=== PATIENT | male | born 1935 | race Caucasian/White ===

== ENCOUNTER 2018-09-28 21:34 | Inpatient (IN) ==
[2018-09-28 22:33] LABS: Basophils # 0.1 10*3/uL (0.0-0.2); Basophils % 0.7 % (0.0-0.8); Eosinophils # 0.1 10*3/uL (0.0-0.87); Eosinophils % 1.5 % (0.00-10.9); Hemoglobin 11.4 GM/DL (14.0-18.0); Immature Granulocytes % 0.2 %; Immature Granulocytes Absolute 0.02 #; Lymphocytes # 1.5 10*3/uL (1.4-4.0); Lymphocytes % 16.2 % (21.2-54.2); Mean Corpuscular HGB Conc 31.7 GM/DL (32-36); Mean Corpuscular Hemoglobin 27 PG (27-34); Mean Corpuscular Volume 83.7 FL (87-102); Mean Platelet Volume 9.5 FL (9.6-12.0); Monocytes # 0.8 10*3/uL (0.11-0.8); Monocytes % 8.4 % (1.7-12.7); Neutrophils # 6.7 10*3/uL (1.4-7.4); Platelet Count 341 T/CUMM (130-400); Red Cell Distribution Width 15.9 % (9.3-17.3); White Blood Count 9.2 T/CUMM (4-12)
[2018-09-28 22:43] LABS: Alanine Aminotransferase 20 U/L (16-61); Albumin 3.2 G/DL (3.4-5.0); Alkaline Phosphatase 84 U/L (45-117); Aspartate Amino Transferase 14 U/L (0-37); Bilirubin,Total < 0.39 MG/DL (0.2-1.0); Blood Urea Nitrogen 12 MG/DL (7-18); Calcium 8.6 MG/DL (8.5-10.1); Glucose 134 MG/DL (74-106); Osmolality,Calculated 276.7 MOS/KG (273-304); Potassium 3.6 MMOL/L (3.5-5.1); Sodium 138 MMOL/L (136-145); Total Protein 7.3 G/DL (6.4-8.3)
[2018-09-28] MEDS ORDERED: HEPARIN 5,000 UNIT/1 ML VIAL IV ONE (22:57)
[2018-09-28] MEDS ORDERED: HEPARIN DRIP 25,000 UNITS/500 ML PREMIX IV SCH (23:00)
[2018-09-28] MEDS ORDERED: NITROGLYCERIN 2% OINT 1 INCH/GM PACK TOP STA (23:05)
[2018-09-28 23:18] LABS: Partial Thromboplastin Time 28.7 SECS (0-40)
[2018-09-28] MEDS ORDERED: LORazepam 1 MG TABLET PO STA (23:29)
[2018-09-28] MEDS ORDERED: MAGNESIUM SULF RIDER 2 GM in PREMIX 1 EACH IV PRN (23:49)
[2018-09-28] MEDS ORDERED: diphenhydrAMINE CAP 25 MG CAPSULE PO PRN (23:49)
[2018-09-28] MEDS ORDERED: MORPHINE 4 MG/1 ML VIAL IV PRN (23:49)
[2018-09-28] MEDS ORDERED: ACETAMINOPHEN 325 MG TABLET PO PRN (23:49)
[2018-09-28] MEDS ORDERED: guaiFENesin/DM ER 600-30 MG TABLET PO PRN (23:49)
[2018-09-28] MEDS ORDERED: ZALEPLON 5 MG CAPSULE PO PRN (23:49)
[2018-09-28] MEDS ORDERED: BISACODYL 5 MG TABLET PO PRN (23:49)
[2018-09-28] MEDS ORDERED: MAGNESIUM SULF RIDER 4 GM in PREMIX 1 EACH IV PRN (23:49)
[2018-09-28] MEDS ORDERED: ONDANSETRON 4 MG/2 ML VIAL IV PRN (23:49)
[2018-09-28] MEDS ORDERED: NICOTINE 21 MG/24 HR PATCH TRANSDERM PRN (23:49)
[2018-09-29 00:49] LABS: Risk Ratio 4.45; Thyroid Stimulating Hormone 0.826 uIU/ml (0.358-3.74)
[2018-09-29 05:40] LABS: Basophils # 0.1 10*3/uL (0.0-0.2); Basophils % 0.6 % (0.0-0.8); Eosinophils # 0.1 10*3/uL (0.0-0.87); Eosinophils % 1.5 % (0.00-10.9); Hematocrit 34.6 VOL% (42.0-52.0); Hemoglobin 11.3 GM/DL (14.0-18.0); Immature Granulocytes % 0.2 %; Immature Granulocytes Absolute 0.02 #; Lymphocytes # 3.1 10*3/uL (1.4-4.0); Lymphocytes % 32.1 % (21.2-54.2); Mean Corpuscular HGB Conc 32.7 GM/DL (32-36); Mean Corpuscular Hemoglobin 27 PG (27-34); Mean Corpuscular Volume 81.8 FL (87-102); Neutrophils # 5.4 10*3/uL (1.4-7.4); Neutrophils % 55.6 % (38.7-73.9); Platelet Count 357 T/CUMM (130-400); Red Blood Count 4.23 MC/CUMM (3.8-5.5); Red Cell Distribution Width 15.8 % (9.3-17.3); White Blood Count 9.6 T/CUMM (4-12)
[2018-09-29 08:24] LABS: CKMB % 10.1 %
[2018-09-29 08:26] LABS: Troponin I 35.2 NG/ML (0.00-0.045)
[2018-09-29] MEDS: ASPIRIN EC 81 MG TABLET PO SCH (08:52)
[2018-09-29] MEDS: LORazepam 1 MG TABLET PO SCH ×3 (08:53→20:58)
[2018-09-29] MEDS: PANTOPRAZOLE 40 MG TABLET PO SCH (08:53)
[2018-09-29] MEDS: HEPARIN DRIP 25,000 UNITS/500 ML PREMIX IV SCH (08:54)
[2018-09-29] MEDS ORDERED: DILTIAZEM CD 120 MG CAPSULE PO SCH (09:00)
[2018-09-29] MEDS ORDERED: MAGNESIUM SULF RIDER 2 GM in PREMIX 1 EACH IV PRN (09:09)
[2018-09-29] MEDS ORDERED: POTASSIUM CHLORIDE RIDER 10 MEQ in PREMIX 1 EACH IV PRN (09:09)
[2018-09-29] MEDS: METOPROLOL TARTRATE 25 MG TABLET PO SCH ×2 (09:59→20:58)
[2018-09-29 12:14] LABS: CKMB % 8.9 %
[2018-09-29 12:16] LABS: Troponin I 23.4 NG/ML (0.00-0.045)
[2018-09-29] MEDS: ISOSORBIDE MONONITRATE 30 MG TABLET PO SCH (14:37)
[2018-09-29] MEDS: ATORVASTATIN 80 MG TABLET PO SCH (20:58)
[2018-09-29] MEDS: POTASSIUM CHLORIDE 20 MEQ TABLET PO PRN (20:58)
[2018-09-30] MEDS ORDERED: DIAZEPAM 5 MG TABLET PO ONE ×2 (00:01→07:30)
[2018-09-30] MEDS ORDERED: diphenhydrAMINE CAP 25 MG CAPSULE PO ONE ×2 (00:01→07:30)
[2018-09-30] MEDS: HEPARIN DRIP 25,000 UNITS/500 ML PREMIX IV SCH ×2 (03:16→12:15)
[2018-09-30 05:36] LABS: Basophils # 0.1 10*3/uL (0.0-0.2); Basophils % 0.9 % (0.0-0.8); Eosinophils # 0.3 10*3/uL (0.0-0.87); Eosinophils % 4.3 % (0.00-10.9); Hematocrit 35.3 VOL% (42.0-52.0); Hemoglobin 11.4 GM/DL (14.0-18.0); Immature Granulocytes % 0.3 %; Immature Granulocytes Absolute 0.02 #; Lymphocytes # 2.8 10*3/uL (1.4-4.0); Lymphocytes % 35.7 % (21.2-54.2); Mean Corpuscular HGB Conc 32.3 GM/DL (32-36); Mean Corpuscular Hemoglobin 27 PG (27-34); Mean Corpuscular Volume 82.5 FL (87-102); Mean Platelet Volume 10.6 FL (9.6-12.0); Monocytes # 0.8 10*3/uL (0.11-0.8); Monocytes % 10.2 % (1.7-12.7); Neutrophils # 3.9 10*3/uL (1.4-7.4); Neutrophils % 48.6 % (38.7-73.9); Platelet Count 364 T/CUMM (130-400); Red Blood Count 4.28 MC/CUMM (3.8-5.5)
[2018-09-30 05:40] LABS: Calcium 8.7 MG/DL (8.5-10.1); Osmolality,Calculated 276.5 MOS/KG (273-304); Potassium 3.7 MMOL/L (3.5-5.1)
[2018-09-30 05:45] LABS: Calcium 8.9 MG/DL (8.5-10.1); Osmolality,Calculated 281.3 MOS/KG (273-304); Potassium 3.7 MMOL/L (3.5-5.1)
[2018-09-30] MEDS ORDERED: HEPARIN/NACL 0.9% 2 UNITS/ML 1,000 ML IV ONE (06:56)
[2018-09-30] MEDS ORDERED: SODIUM CHLORIDE 0.9% 1,000 ML IV SCH (07:30)
[2018-09-30] MEDS: PANTOPRAZOLE 40 MG TABLET PO SCH ×2 (07:49→08:06)
[2018-09-30] MEDS: METOPROLOL TARTRATE 25 MG TABLET PO SCH ×3 (07:49→20:32)
[2018-09-30] MEDS: ASPIRIN EC 81 MG TABLET PO SCH ×2 (07:50→08:05)
[2018-09-30] MEDS: ISOSORBIDE MONONITRATE 30 MG TABLET PO SCH ×2 (07:51→08:06)
[2018-09-30] MEDS: LORazepam 1 MG TABLET PO SCH ×3 (08:06→20:32)
[2018-09-30] MEDS ORDERED: LIDOCAINE 1%/EPI INJ 20 ML VIAL ONE (08:19)
[2018-09-30] MEDS ORDERED: MIDAZOLAM 2 MG/2 ML VIAL ONE (08:19)
[2018-09-30] MEDS ORDERED: fentaNYL 100 MCG/2 ML VIAL ONE (08:19)
[2018-09-30] MEDS ORDERED: HEPARIN/NACL 0.9% 2 UNITS/ML 500 ML IV ONE (08:34)
[2018-09-30] MEDS ORDERED: NIFEdipine 10 MG CAPSULE PO ONE (08:49)
[2018-09-30] MEDS ORDERED: NITROGLYCERIN SL 0.4 MG TABLET SL PRN (09:46)
[2018-09-30] MEDS: TICAGRELOR 90 MG TABLET PO SCH ×2 (10:36→20:32)
[2018-09-30] MEDS: ATORVASTATIN 80 MG TABLET PO SCH (20:32)
[2018-09-30] MEDS ORDERED: ATORVASTATIN 40 MG TABLET PO SCH (21:00)
[2018-09-30] MEDS ORDERED: TICAGRELOR 90 MG TABLET PO SCH (21:00)
[2018-10-01 04:48] LABS: Basophils # 0.1 10*3/uL (0.0-0.2); Basophils % 0.5 % (0.0-0.8); Eosinophils # 0.3 10*3/uL (0.0-0.87); Eosinophils % 3.5 % (0.00-10.9); Hematocrit 36.6 VOL% (42.0-52.0); Hemoglobin 11.7 GM/DL (14.0-18.0); Immature Granulocytes % 0.3 %; Immature Granulocytes Absolute 0.03 #; Lymphocytes # 2.4 10*3/uL (1.4-4.0); Lymphocytes % 25.2 % (21.2-54.2); Mean Corpuscular Hemoglobin 27 PG (27-34); Mean Corpuscular Volume 82.8 FL (87-102); Mean Platelet Volume 9.8 FL (9.6-12.0); Monocytes # 1.1 10*3/uL (0.11-0.8); Monocytes % 11.3 % (1.7-12.7); Neutrophils # 5.5 10*3/uL (1.4-7.4); Neutrophils % 59.2 % (38.7-73.9); Platelet Count 339 T/CUMM (130-400); Red Blood Count 4.42 MC/CUMM (3.8-5.5); Red Cell Distribution Width 15.9 % (9.3-17.3); White Blood Count 9.4 T/CUMM (4-12)
[2018-10-01 04:55] LABS: Calcium 8.3 MG/DL (8.5-10.1); Osmolality,Calculated 279.4 MOS/KG (273-304); Potassium 3.6 MMOL/L (3.5-5.1)
[2018-10-01] MEDS ORDERED: POTASSIUM CHLORIDE RIDER 10 MEQ in PREMIX 1 EACH IV PRN (08:49)
[2018-10-01] MEDS ORDERED: MAGNESIUM SULF RIDER 2 GM in PREMIX 1 EACH IV PRN (08:49)
[2018-10-01] MEDS: ASPIRIN EC 81 MG TABLET PO SCH (09:59)
[2018-10-01] MEDS: amLODIPine 5 MG TABLET PO SCH (09:59)
[2018-10-01] MEDS: POTASSIUM CHLORIDE 20 MEQ TABLET PO PRN ×2 (09:59→13:24)
[2018-10-01] MEDS: METOPROLOL TARTRATE 25 MG TABLET PO SCH ×2 (09:59→21:26)
[2018-10-01] MEDS: ISOSORBIDE MONONITRATE 30 MG TABLET PO SCH (09:59)
[2018-10-01] MEDS: TICAGRELOR 90 MG TABLET PO SCH ×2 (09:59→21:26)
[2018-10-01] MEDS: PANTOPRAZOLE 40 MG TABLET PO SCH (10:00)
[2018-10-01] MEDS: LORazepam 1 MG TABLET PO SCH ×3 (10:03→21:26)
[2018-10-01] MEDS: SODIUM CHLORIDE 0.45% 1,000 ML IV SCH (12:39)
[2018-10-01] MEDS: HEPARIN DRIP 25,000 UNITS/500 ML PREMIX IV SCH (13:01)
[2018-10-01] MEDS: ATORVASTATIN 80 MG TABLET PO SCH (21:26)
[2018-10-02 05:25] LABS: Basophils # 0.1 10*3/uL (0.0-0.2); Basophils % 0.7 % (0.0-0.8); Eosinophils # 0.4 10*3/uL (0.0-0.87); Eosinophils % 4.6 % (0.00-10.9); Hemoglobin 11.8 GM/DL (14.0-18.0); Immature Granulocytes % 0.3 %; Immature Granulocytes Absolute 0.03 #; Lymphocytes # 2.2 10*3/uL (1.4-4.0); Lymphocytes % 24.5 % (21.2-54.2); Mean Corpuscular HGB Conc 32.8 GM/DL (32-36); Mean Corpuscular Hemoglobin 27 PG (27-34); Mean Platelet Volume 10.4 FL (9.6-12.0); Monocytes # 1.1 10*3/uL (0.11-0.8); Monocytes % 12.5 % (1.7-12.7); Neutrophils # 5.3 10*3/uL (1.4-7.4); Neutrophils % 57.4 % (38.7-73.9); Platelet Count 363 T/CUMM (130-400); Red Blood Count 4.39 MC/CUMM (3.8-5.5); Red Cell Distribution Width 15.9 % (9.3-17.3); White Blood Count 9.2 T/CUMM (4-12)
[2018-10-02 05:47] LABS: Calcium 9.1 MG/DL (8.5-10.1); Osmolality,Calculated 274.7 MOS/KG (273-304); Potassium 3.8 MMOL/L (3.5-5.1)
[2018-10-02] MEDS ORDERED: diphenhydrAMINE CAP 25 MG CAPSULE PO ONE (06:30)
[2018-10-02] MEDS ORDERED: DIAZEPAM 5 MG TABLET PO ONE (06:30)
[2018-10-02] MEDS ORDERED: diphenhydrAMINE CAP 50 MG CAPSULE ONE (06:35)
[2018-10-02] MEDS ORDERED: DIAZEPAM 5 MG TABLET ONE (06:36)
[2018-10-02] MEDS ORDERED: HEPARIN/NACL 0.9% 2 UNITS/ML 1,000 ML IV ONE (06:45)
[2018-10-02] MEDS ORDERED: LIDOCAINE 1%/EPI INJ 20 ML VIAL ONE (06:45)
[2018-10-02] MEDS ORDERED: fentaNYL 100 MCG/2 ML VIAL ONE (07:21)
[2018-10-02] MEDS ORDERED: MIDAZOLAM 2 MG/2 ML VIAL ONE (07:21)
[2018-10-02] MEDS ORDERED: NITROGLYCERIN DRIP 50 MG/250 ML BOTTLE IV ONE (07:41)
[2018-10-02] MEDS ORDERED: hydrALAZINE 20 MG/1 ML VIAL ONE (07:41)
[2018-10-02] MEDS ORDERED: HEPARIN 5,000 UNIT/1 ML VIAL ONE (07:44)
[2018-10-02] MEDS ORDERED: HYDROmorphone 2 MG/1 ML VIAL ONE (08:37)
[2018-10-02] MEDS ORDERED: TICAGRELOR 90 MG TABLET ONE (09:11)
[2018-10-02] MEDS: ISOSORBIDE MONONITRATE 30 MG TABLET PO SCH (10:51)
[2018-10-02] MEDS: amLODIPine 5 MG TABLET PO SCH (10:52)
[2018-10-02] MEDS: METOPROLOL TARTRATE 25 MG TABLET PO SCH ×2 (10:52→21:56)
[2018-10-02] MEDS: PANTOPRAZOLE 40 MG TABLET PO SCH (10:52)
[2018-10-02] MEDS: ASPIRIN EC 81 MG TABLET PO SCH (10:52)
[2018-10-02] MEDS: SODIUM CHLORIDE 0.45% 1,000 ML IV SCH ×2 (13:05→16:25)
[2018-10-02] MEDS: LORazepam 1 MG TABLET PO SCH ×3 (13:06→21:56)
[2018-10-02] MEDS: TICAGRELOR 90 MG TABLET PO SCH ×2 (13:06→21:56)
[2018-10-02] MEDS: HEPARIN DRIP 25,000 UNITS/500 ML PREMIX IV SCH (14:33)
[2018-10-02] MEDS: ATORVASTATIN 80 MG TABLET PO SCH (21:56)
[2018-10-03] MEDS: SODIUM CHLORIDE 0.45% 1,000 ML IV SCH (03:28)
[2018-10-03 07:32] LABS: Basophils # 0.1 10*3/uL (0.0-0.2); Basophils % 0.5 % (0.0-0.8); Eosinophils # 0.4 10*3/uL (0.0-0.87); Eosinophils % 3.6 % (0.00-10.9); Hematocrit 35.5 VOL% (42.0-52.0); Hemoglobin 11.5 GM/DL (14.0-18.0); Immature Granulocytes % 0.2 %; Immature Granulocytes Absolute 0.02 #; Lymphocytes % 20.6 % (21.2-54.2); Mean Corpuscular HGB Conc 32.4 GM/DL (32-36); Mean Corpuscular Hemoglobin 27 PG (27-34); Mean Corpuscular Volume 82.6 FL (87-102); Mean Platelet Volume 9.9 FL (9.6-12.0); Monocytes # 1.2 10*3/uL (0.11-0.8); Monocytes % 12.4 % (1.7-12.7); Neutrophils % 62.7 % (38.7-73.9); Platelet Count 348 T/CUMM (130-400); Red Cell Distribution Width 15.8 % (9.3-17.3); White Blood Count 9.6 T/CUMM (4-12)
[2018-10-03 07:54] LABS: Osmolality,Calculated 274.8 MOS/KG (273-304)
[2018-10-03] MEDS: ISOSORBIDE MONONITRATE 30 MG TABLET PO SCH (10:25)
[2018-10-03] MEDS: LORazepam 1 MG TABLET PO SCH (10:25)
[2018-10-03] MEDS: ASPIRIN EC 81 MG TABLET PO SCH (10:25)
[2018-10-03] MEDS: TICAGRELOR 90 MG TABLET PO SCH (10:25)
[2018-10-03] MEDS: amLODIPine 5 MG TABLET PO SCH (10:26)
[2018-10-03] MEDS: METOPROLOL TARTRATE 25 MG TABLET PO SCH (10:26)
[2018-10-03] MEDS: PANTOPRAZOLE 40 MG TABLET PO SCH (10:27)
[2018-10-03 11:58] VITALS: BP 105/72
== END 2018-10-03 13:05 | disposition home or self-care (01) | DRG 246 ==
LOC: EDBD → EDUNIT# → N.ED 21:34 → SUATTDRO 09-29 03:25 → N.EDINP 09-29 03:25 → N.5E 09-29 03:25 → N.TELES 09-29 09:45
PROVIDERS: ADMIT Internal Medicine; ATTEND Hospitalist
PROC: CLCCHCL (ICD-10-PCS; 2018-09-30 08:45)

== ENCOUNTER 2020-03-15 12:22 | Inpatient (IN) ==
[2020-03-15 13:12] LABS: Basophils # 0.1 10*3/uL (0.0-0.2); Basophils % 0.5 % (0.0-0.8); Eosinophils % 0.1 % (0.00-10.9); Hematocrit 31.5 VOL% (42.0-52.0); Hemoglobin 10.1 GM/DL (14.0-18.0); Immature Granulocytes % 0.4 %; Immature Granulocytes Absolute 0.05 #; Lymphocytes # 1.4 10*3/uL (1.4-4.0); Lymphocytes % 11.9 % (21.2-54.2); Mean Corpuscular HGB Conc 32.1 GM/DL (32-36); Monocytes % 7.3 % (1.7-12.7); Neutrophils % 79.8 % (38.7-73.9); Platelet Count 364 T/CUMM (130-400); Red Blood Count 3.75 MC/CUMM (3.8-5.5); Red Cell Distribution Width 14.6 % (9.3-17.3); White Blood Count 11.4 T/CUMM (4-12)
[2020-03-15 13:26] LABS: Calcium 9.7 MG/DL (8.5-10.1); Osmolality,Calculated 287.4 MOS/KG (273-304)
[2020-03-15 13:29] LABS: INR 1.2; PT Patient Result 12.3 SECS (9.8-11.9); Partial Thromboplastin Time 27.6 SECS (23.9-33.8)
[2020-03-15] MEDS ORDERED: SODIUM CHLORIDE 0.9% 1,000 ML IV STA (13:39)
[2020-03-15 14:11] LABS: Albumin 3.5 G/DL (3.4-5.0); Bilirubin,Total 0.6 MG/DL (0.2-1.0); Calcium 9.2 MG/DL (8.5-10.1); Osmolality,Calculated 287.5 MOS/KG (273-304); Total Protein 7.9 G/DL (6.4-8.3)
[2020-03-15] MEDS ORDERED: ONDANSETRON 4 MG/2 ML VIAL IV PRN (14:50)
[2020-03-15] MEDS ORDERED: GLUCAGON 1 MG VIAL IM PRN (14:50)
[2020-03-15] MEDS ORDERED: DEXTROSE 50% 25 GM/50 ML VIAL IV PRN (14:50)
[2020-03-15] MEDS: DEXTROSE 5% NACL 0.45% 1,000 ML IV SCH (16:10)
[2020-03-15] MEDS: METOPROLOL TARTRATE 5 MG/5 ML VIAL IV SCH ×2 (16:10→21:11)
[2020-03-15] MEDS: PANTOPRAZOLE 40 MG VIAL IV SCH (16:12)
[2020-03-15] MEDS: LORazepam 2 MG/1 ML VIAL IV PRN (16:15)
[2020-03-16] MEDS: LORazepam 2 MG/1 ML VIAL IV PRN (00:32)
[2020-03-16] MEDS: DEXTROSE 5% NACL 0.45% 1,000 ML IV SCH ×2 (03:52→15:04)
[2020-03-16] MEDS: METOPROLOL TARTRATE 5 MG/5 ML VIAL IV SCH ×4 (03:53→20:50)
[2020-03-16 05:55] LABS: Basophils # 0.1 10*3/uL (0.0-0.2); Basophils % 0.7 % (0.0-0.8); Eosinophils # 0.1 10*3/uL (0.0-0.87); Eosinophils % 0.8 % (0.00-10.9); Hematocrit 32.1 VOL% (42.0-52.0); Hemoglobin 10.4 GM/DL (14.0-18.0); Immature Granulocytes % 0.4 %; Immature Granulocytes Absolute 0.04 #; Lymphocytes # 1.4 10*3/uL (1.4-4.0); Lymphocytes % 13.6 % (21.2-54.2); Mean Corpuscular HGB Conc 32.4 GM/DL (32-36); Mean Corpuscular Volume 82.9 FL (87-102); Mean Platelet Volume 10.3 FL (9.6-12.0); Neutrophils % 73.5 % (38.7-73.9); Platelet Count 360 T/CUMM (130-400); Red Blood Count 3.87 MC/CUMM (3.8-5.5); Red Cell Distribution Width 14.7 % (9.3-17.3); White Blood Count 10.6 T/CUMM (4-12)
[2020-03-16] MEDS ORDERED: cefOXitin 2,000 MG in SYRINGE 1 EACH IV ONE (06:00)
[2020-03-16 06:37] LABS: Calcium 9.2 MG/DL (8.5-10.1); Osmolality,Calculated 285.5 MOS/KG (273-304)
[2020-03-16] MEDS ORDERED: BUPIVACAINE MPF 0.25% 30 ML VIAL ONE (08:05)
[2020-03-16] MEDS ORDERED: LIDOCAINE 1%/EPI INJ 20 ML VIAL ONE (08:05)
[2020-03-16] MEDS: LACTATED RINGERS 1,000 ML IV SCH ×3 (08:10→16:31)
[2020-03-16] MEDS: PANTOPRAZOLE 40 MG VIAL IV SCH (09:27)
[2020-03-16] MEDS ORDERED: RACEPINEPHRINE 0.5 ML NEB RESP TX ONE ×2 (09:31→09:57)
[2020-03-16] MEDS ORDERED: LABETALOL 100 MG/20 ML VIAL IV ONE ×2 (09:34→09:50)
[2020-03-16] MEDS ORDERED: propofoL 200 MG/20 ML VIAL IV ONE ×2 (09:49→11:31)
[2020-03-16] MEDS ORDERED: SEVOFLURANE 1 UNIT/15 MINUTE INH ONE (09:49)
[2020-03-16] MEDS ORDERED: LIDOCAINE 2% 5 ML VIAL ONE (09:49)
[2020-03-16] MEDS ORDERED: CALCIUM CHLORIDE 1,000 MG/10 ML VIAL IV ONE (09:49)
[2020-03-16] MEDS ORDERED: fentaNYL 100 MCG/2 ML VIAL ONE (09:50)
[2020-03-16] MEDS ORDERED: ETOMIDATE 40 MG/20 ML VIAL IV ONE (09:50)
[2020-03-16] MEDS ORDERED: ONDANSETRON 4 MG/2 ML VIAL ONE (09:50)
[2020-03-16] MEDS ORDERED: DEXAMETHASONE 4 MG/1 ML VIAL ONE (09:50)
[2020-03-16] MEDS ORDERED: ePHEDrine 50 MG/ML VIAL ONE (09:50)
[2020-03-16] MEDS ORDERED: LACTATED RINGERS 1,000 ML IV ONE (09:51)
[2020-03-16] MEDS ORDERED: ROCURONIUM 100 MG/10 ML VIAL IV ONE (09:51)
[2020-03-16] MEDS ORDERED: SUCCINYLCHOLINE 200 MG/10 ML VIAL ONE (09:51)
[2020-03-16] MEDS ORDERED: PHENYLEPHRINE 1 MG/10 ML SYRINGE IV ONE (09:51)
[2020-03-16] MEDS ORDERED: hydrALAZINE 20 MG/1 ML VIAL ONE (09:57)
[2020-03-16] MEDS: hydrALAZINE 20 MG/1 ML VIAL IV PRN (10:05)
[2020-03-16] MEDS ORDERED: NALOXONE 0.4 MG/ML VIAL ONE (10:40)
[2020-03-16] MEDS ORDERED: NALOXONE 0.4 MG/ML VIAL IV ONE (10:40)
[2020-03-16] MEDS ORDERED: flumazeniL 0.5 MG/5 ML VIAL IV ONE ×2 (11:00→11:18)
[2020-03-16 11:24] LABS: ABG Base Excess -5.1 MMOL/L (-2.5-2.5); ABG HCO3 20.2 MMOL/L (20-26); ABG Oxygen Saturation 97.8 % (95-100); ABG TCO2 31.5 MMOL/L (23-27); Allen Test Positive; Pt O2 Delivery Device Simple Mask
[2020-03-16 11:27] LABS: ABG PH 6.967 (7.35-7.45)
[2020-03-16] MEDS ORDERED: PHENYLEPHRINE DRIP 40 MG/250 ML PREMIX IV ONE (11:43)
[2020-03-16] MEDS ORDERED: PHENYLEPHRINE DRIP 40 MG/250 ML PREMIX IV PRN (12:00)
[2020-03-16 12:13] LABS: ABG Base Excess -1.7 MMOL/L (-2.5-2.5); ABG Oxygen Saturation 99.9 % (95-100); ABG PCO2 47.5 MM HG (35-48); ABG PH 7.322 (7.35-7.45); ABG TCO2 22.6 MMOL/L (23-27)
[2020-03-16] MEDS ORDERED: NOREPINEPHRINE 8 MG in SODIUM CHLORIDE 0.9% 242 ML IV PRN (14:31)
[2020-03-16] MEDS: THIAMINE 200 MG/2 ML VIAL IV SCH (16:21)
[2020-03-16] MEDS ORDERED: LACTATED RINGERS 250 ML IV ONE (16:30)
[2020-03-16] MEDS: methylPREDNISolone SOD SUC 40 MG/1 ML VIAL IV SCH (17:27)
[2020-03-16] MEDS: ALBUTEROL/IPRATROPIUM 3 ML NEB RESP TX SCH (19:15)
[2020-03-17] MEDS: ALBUTEROL/IPRATROPIUM 3 ML NEB RESP TX SCH ×4 (00:45→19:54)
[2020-03-17] MEDS: methylPREDNISolone SOD SUC 40 MG/1 ML VIAL IV SCH ×3 (01:23→16:52)
[2020-03-17] MEDS: LACTATED RINGERS 1,000 ML IV SCH ×2 (03:43→13:35)
[2020-03-17] MEDS: METOPROLOL TARTRATE 5 MG/5 ML VIAL IV SCH ×3 (03:45→14:50)
[2020-03-17 04:49] LABS: ABG Base Excess -3.8 MMOL/L (-2.5-2.5); ABG HCO3 21.3 MMOL/L (20-26); ABG Oxygen Saturation 99.9 % (95-100); ABG PCO2 35.2 MM HG (35-48); ABG PH 7.379 (7.35-7.45); ABG TCO2 19.1 MMOL/L (23-27); Allen Test Positive; Pt O2 Delivery Device Ventilator
[2020-03-17 05:32] LABS: Basophils % 0.1 % (0.0-0.8); Hematocrit 27.6 VOL% (42.0-52.0); Hemoglobin 9.1 GM/DL (14.0-18.0); Immature Granulocytes % 0.4 %; Immature Granulocytes Absolute 0.03 #; Lymphocytes # 0.5 10*3/uL (1.4-4.0); Lymphocytes % 6.2 % (21.2-54.2); Mean Corpuscular Volume 83.1 FL (87-102); Mean Platelet Volume 9.9 FL (9.6-12.0); Neutrophils % 90.3 % (38.7-73.9); Platelet Count 319 T/CUMM (130-400); Red Blood Count 3.32 MC/CUMM (3.8-5.5); Red Cell Distribution Width 14.7 % (9.3-17.3); White Blood Count 8.2 T/CUMM (4-12)
[2020-03-17 05:50] LABS: Calcium 9.6 MG/DL (8.5-10.1); Osmolality,Calculated 294.4 MOS/KG (273-304)
[2020-03-17] MEDS: PANTOPRAZOLE 40 MG VIAL IV SCH (08:36)
[2020-03-17] MEDS: THIAMINE 200 MG/2 ML VIAL IV SCH (08:38)
[2020-03-17 09:46] LABS: ABG Base Excess -1.8 MMOL/L (-2.5-2.5); ABG HCO3 22.9 MMOL/L (20-26); ABG Oxygen Saturation 99.9 % (95-100); ABG PCO2 38.1 MM HG (35-48); ABG PH 7.387 (7.35-7.45); ABG TCO2 21.1 MMOL/L (23-27)
[2020-03-17] MEDS: hydrALAZINE 20 MG/1 ML VIAL IV PRN (12:07)
[2020-03-17] MEDS ORDERED: amLODIPine 5 MG TABLET PO SCH (17:56)
[2020-03-17] MEDS ORDERED: HYDROcod/ACETAMIN 7.5-325 MG/15 ML UDCUP PO PRN (17:56)
[2020-03-17] MEDS ORDERED: METOPROLOL TARTRATE 25 MG TABLET PO SCH (17:56)
[2020-03-17] MEDS: amLODIPine 5 MG TABLET PO SCH (21:12)
[2020-03-17] MEDS: METOPROLOL TARTRATE 25 MG TABLET PO SCH (21:13)
[2020-03-18] MEDS: methylPREDNISolone SOD SUC 40 MG/1 ML VIAL IV SCH ×2 (00:31→09:13)
[2020-03-18] MEDS: LORazepam 2 MG/1 ML VIAL IV PRN ×2 (00:37→09:14)
[2020-03-18] MEDS: ALBUTEROL/IPRATROPIUM 3 ML NEB RESP TX SCH ×3 (01:08→13:03)
[2020-03-18 07:00] LABS: Calcium 9.3 MG/DL (8.5-10.1); Osmolality,Calculated 297.4 MOS/KG (273-304)
[2020-03-18] MEDS: THIAMINE 200 MG/2 ML VIAL IV SCH (08:27)
[2020-03-18] MEDS: METOPROLOL TARTRATE 25 MG TABLET PO SCH (08:28)
[2020-03-18] MEDS: PANTOPRAZOLE 40 MG VIAL IV SCH (08:28)
[2020-03-18] MEDS: amLODIPine 5 MG TABLET PO SCH (08:29)
[2020-03-18 12:12] VITALS: BP 123/71
== END 2020-03-18 14:30 | disposition home health service (06) | DRG 981 ==
LOC: EDUNIT# → EDBD → N.EDINP 12:22 → N.ED 12:22 → SUATTDRO 14:50 → N.3E 17:40 → N.CVR 03-16 14:01 → SUATTDRO 03-17 11:28 → N.4E 03-17 17:34
PROVIDERS: ADMIT Internal Medicine; ATTEND Internal Medicine

== ENCOUNTER 2020-03-21 16:29 | Inpatient (IN) ==
[2020-03-21 17:12] LABS: Basophils % 0.3 % (0.0-0.8); Eosinophils # 0.3 10*3/uL (0.0-0.87); Eosinophils % 2.7 % (0.00-10.9); Hemoglobin 8.6 GM/DL (14.0-18.0); Immature Granulocytes % 0.4 %; Immature Granulocytes Absolute 0.04 #; Lymphocytes # 1.2 10*3/uL (1.4-4.0); Lymphocytes % 11.5 % (21.2-54.2); Mean Corpuscular HGB Conc 33.1 GM/DL (32-36); Mean Corpuscular Volume 83.1 FL (87-102); Mean Platelet Volume 10.7 FL (9.6-12.0); Monocytes % 8.5 % (1.7-12.7); Neutrophils % 76.6 % (38.7-73.9); Platelet Count 236 T/CUMM (130-400); Red Blood Count 3.13 MC/CUMM (3.8-5.5); Red Cell Distribution Width 14.9 % (9.3-17.3); White Blood Count 10.5 T/CUMM (4-12)
[2020-03-21] MEDS: dilTIAZem Drip 125 MG/125 ML PREMIX IV SCH (17:20)
[2020-03-21 17:25] LABS: Albumin 2.8 G/DL (3.4-5.0); Bilirubin,Total 0.4 MG/DL (0.2-1.0); Calcium 8.3 MG/DL (8.5-10.1); Total Protein 6.1 G/DL (6.4-8.3)
[2020-03-21] MEDS ORDERED: DEXTROSE 50% 25 GM/50 ML VIAL IV PRN (19:33)
[2020-03-21] MEDS ORDERED: GLUCAGON 1 MG VIAL IM PRN (19:33)
[2020-03-21] MEDS ORDERED: ACETAMINOPHEN 325 MG TABLET PO PRN (19:33)
[2020-03-21] MEDS ORDERED: ONDANSETRON 4 MG/2 ML VIAL IV PRN (19:33)
[2020-03-21] MEDS ORDERED: HYDROcod/ACETAMIN 7.5-325 MG/15 ML UDCUP PO PRN (19:39)
[2020-03-21] MEDS ORDERED: PROCHLORPERAZINE 25 MG SUPP RECTAL PRN (19:39)
[2020-03-21] MEDS ORDERED: ACETAMINOPHEN 325 MG/10.15 ML UDCUP PO PRN ×2 (19:39→23:30)
[2020-03-21] MEDS ORDERED: LEVALBUTEROL 0.31 MG/3 ML NEB RESP TX STA (19:45)
[2020-03-21 20:07] LABS: Thyroid Stimulating Hormone 0.265 uIU/ml (0.358-3.74)
[2020-03-21] MEDS ORDERED: LORazepam 2 MG/1 ML VIAL IV SCH (21:00)
[2020-03-21] MEDS: ENOXAPARIN 60 MG/0.6 ML SYRINGE SUBCUT SCH (23:06)
[2020-03-22] MEDS: dilTIAZem Drip 125 MG/125 ML PREMIX IV SCH ×2 (01:56→10:40)
[2020-03-22 05:03] LABS: Apearance,Urine CLEAR (Clear); Bacteria,Urine Occasional /HPF (Few); Bilirubin,Urine Negative (Negative); Blood, Urine Small mg/dL (Negative); Glucose,Urine (UA) 50 mg/dL (Negative); Ketones,Urine 5 mg/dL (Negative); Nitrite,Urine Negative (Negative); Protein,Urine 30 MG/DL; RBC,Urine <1 /HPF (0-4); Urine Color Yellow (Yellow); Urine Specific Gravity 1.011 (1.001-1.035); Urine Urobilinogen < 2.0 EU/DL (0.2-1.0); WBC,Urine <1 /HPF (0-6)
[2020-03-22 05:06] LABS: Basophils % 0.2 % (0.0-0.8); Eosinophils # 0.2 10*3/uL (0.0-0.87); Eosinophils % 1.6 % (0.00-10.9); Hematocrit 26.9 VOL% (42.0-52.0); Hemoglobin 8.8 GM/DL (14.0-18.0); Immature Granulocytes % 0.4 %; Immature Granulocytes Absolute 0.04 #; Lymphocytes # 1.1 10*3/uL (1.4-4.0); Lymphocytes % 9.8 % (21.2-54.2); Mean Corpuscular HGB Conc 32.7 GM/DL (32-36); Mean Corpuscular Volume 82.5 FL (87-102); Mean Platelet Volume 10.9 FL (9.6-12.0); Monocytes % 9.6 % (1.7-12.7); Neutrophils % 78.4 % (38.7-73.9); Platelet Count 284 T/CUMM (130-400); Red Blood Count 3.26 MC/CUMM (3.8-5.5); Red Cell Distribution Width 14.8 % (9.3-17.3)
[2020-03-22 05:39] LABS: Albumin 2.8 G/DL (3.4-5.0); Bilirubin,Total 1.2 MG/DL (0.2-1.0); Calcium 8.5 MG/DL (8.5-10.1); Risk Ratio 3.92; Total Protein 6.5 G/DL (6.4-8.3); VLDL CHOLESTEROL 24.4 MG/DL
[2020-03-22] MEDS: ASPIRIN CHEW 81 MG TABLET PO SCH (09:24)
[2020-03-22] MEDS: ENOXAPARIN 60 MG/0.6 ML SYRINGE SUBCUT SCH (09:24)
[2020-03-22] MEDS: PANTOPRAZOLE 40 MG TABLET PO SCH (09:24)
[2020-03-22] MEDS: LORazepam 1 MG TABLET PO SCH ×3 (09:24→22:10)
[2020-03-22] MEDS ORDERED: METOPROLOL SUCCINATE XL 50 MG TABLET PO SCH (10:30)
[2020-03-22 11:51] LABS: Troponin I 0.058 NG/ML (0.00-0.045)
[2020-03-22] MEDS: APIXABAN 2.5 MG TABLET PO SCH ×2 (12:05→22:11)
[2020-03-22] MEDS: SODIUM CHLORIDE 0.9% 1,000 ML IV SCH ×2 (12:05→19:27)
[2020-03-22] MEDS: POTASSIUM CHLORIDE 20 MEQ TABLET PO PRN (12:05)
[2020-03-22] MEDS: ROSUVASTATIN 20 MG TABLET PO SCH (22:11)
[2020-03-22] MEDS ORDERED: hydrALAZINE 20 MG/1 ML VIAL IV PRN (23:47)
[2020-03-23] MEDS ORDERED: METOPROLOL TARTRATE 5 MG/5 ML VIAL IV ONE (00:10)
[2020-03-23] MEDS ORDERED: METOPROLOL TARTRATE 5 MG/5 ML VIAL IV PRN (00:10)
[2020-03-23] MEDS: SODIUM CHLORIDE 0.9% 1,000 ML IV SCH ×3 (02:36→21:22)
[2020-03-23 03:20] LABS: Basophils % 0.2 % (0.0-0.8); Eosinophils # 0.4 10*3/uL (0.0-0.87); Eosinophils % 2.8 % (0.00-10.9); Hematocrit 28.6 VOL% (42.0-52.0); Hemoglobin 9.3 GM/DL (14.0-18.0); Immature Granulocytes % 0.4 %; Immature Granulocytes Absolute 0.05 #; Lymphocytes # 0.9 10*3/uL (1.4-4.0); Lymphocytes % 7.4 % (21.2-54.2); Mean Corpuscular HGB Conc 32.5 GM/DL (32-36); Mean Corpuscular Volume 82.2 FL (87-102); Mean Platelet Volume 10.3 FL (9.6-12.0); Neutrophils % 79.2 % (38.7-73.9); Platelet Count 331 T/CUMM (130-400); Red Blood Count 3.48 MC/CUMM (3.8-5.5); Red Cell Distribution Width 15.2 % (9.3-17.3); White Blood Count 12.6 T/CUMM (4-12)
[2020-03-23 03:45] LABS: Calcium 8.3 MG/DL (8.5-10.1); Osmolality,Calculated 281.8 MOS/KG (273-304)
[2020-03-23] MEDS: dilTIAZem Drip 125 MG/125 ML PREMIX IV SCH ×2 (05:06→23:24)
[2020-03-23] MEDS: APIXABAN 2.5 MG TABLET PO SCH ×2 (09:05→21:17)
[2020-03-23] MEDS: METOPROLOL SUCCINATE XL 50 MG TABLET PO SCH (09:05)
[2020-03-23] MEDS: PANTOPRAZOLE 40 MG TABLET PO SCH (09:05)
[2020-03-23] MEDS: LORazepam 1 MG TABLET PO SCH ×3 (09:05→21:16)
[2020-03-23] MEDS: POTASSIUM CHLORIDE 20 MEQ TABLET PO PRN ×2 (09:05→11:38)
[2020-03-23] MEDS: ASPIRIN CHEW 81 MG TABLET PO SCH (09:05)
[2020-03-23] MEDS ORDERED: POTASSIUM CHLORIDE 20 MEQ TABLET PO ONE (09:20)
[2020-03-23] MEDS: ASCORBIC ACID 500 MG TABLET PO SCH ×2 (11:38→21:16)
[2020-03-23] MEDS ORDERED: ALBUTEROL/IPRATROPIUM 3 ML NEB RESP TX ONE (16:04)
[2020-03-23] MEDS ORDERED: methylPREDNISolone SOD SUC 125 MG/2 ML VIAL IV ONE ×2 (16:17)
[2020-03-23 16:45] LABS: ABG Base Excess 1.9 MMOL/L (-2.5-2.5); ABG HCO3 26.1 MMOL/L (20-26); ABG PCO2 54.8 MM HG (35-48); ABG PH 7.327 (7.35-7.45); ABG TCO2 26.6 MMOL/L (23-27); Allen Test Positive
[2020-03-23] MEDS ORDERED: FUROSEMIDE 40 MG/4 ML VIAL IV ONE (16:53)
[2020-03-23 17:03] LABS: Calcium 8.2 MG/DL (8.5-10.1); Osmolality,Calculated 280.8 MOS/KG (273-304)
[2020-03-23] MEDS: AZITHROMYCIN INJ 500 MG in SODIUM CHLORIDE 0.9% 250 ML IV SCH (17:10)
[2020-03-23] MEDS: PIPERACILLIN/TAZOBACTAM 3,375 MG in SODIUM CHLORIDE 0.9% 100 ML IV SCH (17:30)
[2020-03-23] MEDS ORDERED: VANCOMYCIN INJ 1,000 MG in SODIUM CHLORIDE 0.9% 250 ML IV SCH (21:00)
[2020-03-23] MEDS: ROSUVASTATIN 20 MG TABLET PO SCH (21:16)
[2020-03-24 03:37] LABS: Basophils % 0.1 % (0.0-0.8); Hemoglobin 10.1 GM/DL (14.0-18.0); Immature Granulocytes % 0.4 %; Immature Granulocytes Absolute 0.05 #; Lymphocytes # 0.5 10*3/uL (1.4-4.0); Lymphocytes % 4.2 % (21.2-54.2); Mean Corpuscular HGB Conc 31.6 GM/DL (32-36); Mean Corpuscular Volume 84.9 FL (87-102); Mean Platelet Volume 10.4 FL (9.6-12.0); Monocytes % 0.6 % (1.7-12.7); Neutrophils % 94.7 % (38.7-73.9); Platelet Count 375 T/CUMM (130-400); Red Blood Count 3.77 MC/CUMM (3.8-5.5); Red Cell Distribution Width 15.9 % (9.3-17.3); White Blood Count 11.4 T/CUMM (4-12)
[2020-03-24 04:08] LABS: Calcium 8.4 MG/DL (8.5-10.1); Osmolality,Calculated 285.8 MOS/KG (273-304)
[2020-03-24 04:34] LABS: Hypochromasia 1+; Lymphocytes 6 % (20-55); Platelet Estimate Adequate; Segmented Neutrophils 94 % (50-85); Total Cells Counted 100
[2020-03-24] MEDS: dilTIAZem Drip 125 MG/125 ML PREMIX IV SCH (07:00)
[2020-03-24] MEDS: PIPERACILLIN/TAZOBACTAM 3,375 MG in SODIUM CHLORIDE 0.9% 100 ML IV SCH ×3 (08:40→15:20)
[2020-03-24] MEDS: APIXABAN 2.5 MG TABLET PO SCH ×2 (08:45→21:10)
[2020-03-24] MEDS: LORazepam 1 MG TABLET PO SCH ×3 (08:45→21:09)
[2020-03-24] MEDS: ASCORBIC ACID 500 MG TABLET PO SCH ×2 (08:45→21:09)
[2020-03-24] MEDS: ASPIRIN CHEW 81 MG TABLET PO SCH (08:45)
[2020-03-24] MEDS: OMEPRAZOLE ODT 20 MG TABLET PEG SCH (08:45)
[2020-03-24] MEDS: POTASSIUM CHLORIDE 20 MEQ TABLET PO PRN (08:45)
[2020-03-24] MEDS: METOPROLOL SUCCINATE XL 50 MG TABLET PO SCH (09:00)
[2020-03-24] MEDS ORDERED: POTASSIUM CHLORIDE 20 MEQ/15 ML UDCUP PO PRN (09:30)
[2020-03-24] MEDS: DILTIAZEM 30 MG TABLET PO SCH ×3 (09:35→21:09)
[2020-03-24] MEDS: METOPROLOL TARTRATE 25 MG TABLET PER TUBE SCH ×2 (09:45→21:09)
[2020-03-24] MEDS ORDERED: POTASSIUM CHLORIDE 20 MEQ TABLET PO ONE (14:00)
[2020-03-24] MEDS ORDERED: POTASSIUM CHLORIDE 20 MEQ/15 ML UDCUP PO ONE (15:00)
[2020-03-24] MEDS: AZITHROMYCIN INJ 500 MG in SODIUM CHLORIDE 0.9% 250 ML IV SCH (15:10)
[2020-03-24] MEDS: ROSUVASTATIN 20 MG TABLET PO SCH (21:12)
[2020-03-25] MEDS: PIPERACILLIN/TAZOBACTAM 3,375 MG in SODIUM CHLORIDE 0.9% 100 ML IV SCH ×2 (00:14→08:52)
[2020-03-25] MEDS: DILTIAZEM 30 MG TABLET PO SCH ×3 (03:10→14:55)
[2020-03-25 06:24] LABS: Basophils % 0.1 % (0.0-0.8); Hematocrit 26.3 VOL% (42.0-52.0); Hemoglobin 8.7 GM/DL (14.0-18.0); Immature Granulocytes % 0.7 %; Immature Granulocytes Absolute 0.14 #; Lymphocytes # 0.8 10*3/uL (1.4-4.0); Lymphocytes % 3.9 % (21.2-54.2); Mean Corpuscular HGB Conc 33.1 GM/DL (32-36); Mean Corpuscular Volume 82.2 FL (87-102); Mean Platelet Volume 10.4 FL (9.6-12.0); Monocytes % 5.5 % (1.7-12.7); Neutrophils % 89.8 % (38.7-73.9); Platelet Count 363 T/CUMM (130-400); Red Cell Distribution Width 15.9 % (9.3-17.3); White Blood Count 19.6 T/CUMM (4-12)
[2020-03-25 06:37] LABS: Calcium 8.3 MG/DL (8.5-10.1); Osmolality,Calculated 291.4 MOS/KG (273-304)
[2020-03-25 06:54] LABS: Hypochromasia 2+; Lymphocytes 5 % (20-55); Platelet Estimate Adequate; Segmented Neutrophils 90 % (50-85); Target Cells Few; Total Cells Counted 100
[2020-03-25] MEDS ORDERED: AZITHROMYCIN 250 MG TABLET PO SCH (09:00)
[2020-03-25] MEDS: ASCORBIC ACID 500 MG TABLET PO SCH (09:50)
[2020-03-25] MEDS: LORazepam 1 MG TABLET PO SCH ×2 (09:50→14:54)
[2020-03-25] MEDS: APIXABAN 2.5 MG TABLET PO SCH (09:51)
[2020-03-25] MEDS: OMEPRAZOLE ODT 20 MG TABLET PEG SCH (09:51)
[2020-03-25] MEDS: ASPIRIN CHEW 81 MG TABLET PO SCH (09:51)
[2020-03-25] MEDS: METOPROLOL TARTRATE 25 MG TABLET PER TUBE SCH (09:51)
[2020-03-25 12:46] VITALS: BP 128/74
== END 2020-03-25 16:32 | disposition home health service (06) | DRG 308 ==
LOC: EDBD → EDUNIT# → N.ED 16:29 → SUATTDRO 19:31 → N.EDINP 19:31 → N.TELES 23:00 → N.ICU 03-23 16:41 → N.4E 03-24 19:56
PROVIDERS: ADMIT Internal Medicine; ATTEND Internal Medicine